=== PATIENT | female | born 1970 | race Caucasian/White ===

== ENCOUNTER 2022-05-15 08:18 | Outpatient (CLI) | payer OTHER, SELFPAY ==
--- NOTE | ~2022-05-15 | MR_ITS ---
EXAMINATION: MR brain/brain stem wo con DATE: 05/15/2022 09:08 INDICATION: Headache. TECHNIQUE: Magnetic resonance imaging (MRI) of the brain and brainstem was performed without intraven ous contrast. COMPARISON: None. FINDINGS: There are scattered areas of nonspecific increased T2-weighted signal intensity in the cere bral white matter. There is no intracranial hemorrhage, acute infarction, or abnormal intracranial ma ss lesion. The ventricles are normal in size. There is mild mucosal thickening in the paranasal sinus es. The orbits are normal. The mastoid air cells are normal. IMPRESSION: 1. Mild nonspecific cerebral white matter disease, which likely represents chronic small vessel ische lyndsay disease. Reviewed, dictated and finalized at location A. IMPRESSION: 1. 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
== END 2022-05-15 08:19 | disposition home or self-care (01) ==
LOC: CHSIMG 08:19
PROVIDERS: PCP Nurse Practitioner; Visit Provider Nurse Practitioner
DX: R51.9 Headache, unspecified (principal)
CPT/HCPCS: 70551